=== PATIENT | female | born 1995 | race Caucasian/White ===

== ENCOUNTER 2020-07-19 20:41 | Emergency (ER) | payer BC, OTHER ==
[~2020-07-19] VITALS: Ht 172.7 cm; Wt 68.0 kg
[2020-07-19] MEDS ORDERED: ONDANSETRON 4 MG/2 ML (SDV) Z0FRAN ONE (21:21)
[2020-07-19 21:25] LABS: BASOPHILS % (AUTO) 0 % (0-10); EOSINOPHILS # (AUTO) 0.2 10^3/uL (0.0-0.3); EOSINOPHILS % (AUTO) 2 % (0-10); HEMATOCRIT 39 % (35-52); HEMOGLOBIN 12.7 g/dL (11.5-16.0); LYMPHOCYTES # (AUTO) 2.9 10^3/uL (1.0-4.0); LYMPHOCYTES % (AUTO) 34 % (12-44); MEAN CORPUSCULAR HEMOGLOBIN 29 pg (25-34); MEAN CORPUSCULAR HGB CONC 33 g/dL (32-36); MEAN CORPUSCULAR VOLUME 88 fL (80-99); MONOCYTES # (AUTO) 0.7 10^3/uL (0.0-1.0); MONOCYTES % (AUTO) 9 % (0-12); NEUTROPHILS # (AUTO) 4.6 10^3/uL (1.8-7.8); NEUTROPHILS % (AUTO) 54 % (42-75); PLATELET COUNT 318 10^3/uL (130-400); WHITE BLOOD COUNT 8.6 10^3/uL (4.3-11.0)
[2020-07-19 21:37] LABS: ALANINE AMINOTRANSFERASE 17 U/L (0-55); ALKALINE PHOSPHATASE 66 U/L (40-136); BILIRUBIN,TOTAL 0.3 MG/DL (0.1-1.0); BUN/CREATININE RATIO 15; CALCIUM 7.9 MG/DL (8.5-10.1); CARBON DIOXIDE 22 MMOL/L (21-32); CHLORIDE 104 MMOL/L (98-107); CREATININE SERUM 0.66 MG/DL (0.60-1.30); GFR ESTIMATED > 60; GLUCOSE 116 MG/DL (70-105); POTASSIUM 3.5 MMOL/L (3.6-5.0); SODIUM 135 MMOL/L (135-145); TOTAL PROTEIN 6.5 GM/DL (6.4-8.2)
--- NOTE | 2020-07-19 22:04 | Diagnostic Imaging Report ---
PROCEDURE: CT head without contrast. TECHNIQUE: Multiple contiguous axial images were obtained through the brain without the use of intravenous contrast. Auto Exposure Controls were utilized during the CT exam to meet ALARA standards for radiation dose reduction. INDICATION: Near syncope COMPARISON: There are no prior studies available for comparison. There is no mass, shift of the midline or hemorrhage to suggest an acute intracranial abnormality. The ventricles are not abnormally dilated. The bone windows show no evidence for a fracture or for a destructive lesion. The orbits are symmetrical and within normal limits. The sinuses are generally clear. IMPRESSION: 1. There is no evidence for an acute intracranial abnormality. 2. If clinical concern regarding an underlying abnormality persists, an MRI would be recommended for further study. Dictated by: Dictated on workstation # [id number]
--- NOTE | 2020-07-19 23:04 | ED General ---
General Chief Complaint: Neurological Problems Stated Complaint: [facility] Nursing Triage Note: PATIENT ARRIVES TONIGHT VIA POV FROM LOCAL RESTAURANT AFTER HAVING WHAT IS DESCRIBED A POTENTIAL SEIZURE. PATIENT WAS EATING AND VISITING WITH FRIENDS WHEN ALL OF THE SUDDEN SHE FELL FORWARD EITH HER HEAD ALMOST HITTING THE TABLE. PATIENT IS UNABLE TO RECALL WHETHER SHE LOST CONCIOUSNESS BUT A FRIEND STATES SHE WAS RESPONDING WHEN ASKED IF SHE WAS OKAY, ALSO STATES HER LIPS WERE WHITE. PATIENT STATES AFTER SITTING BACK UP SHE BECAME NAUSEOUS AND WEAK. BILATERAL SIDE RAILS UP, CALL LIGHT IN REACH, S.O. AT BEDSIDE. Nursing Sepsis Screen: No Definite Risk Source of Information: Patient Exam Limitations: No Limitations History of Present Illness Date Seen by Provider: July 19, 2020 Time Seen by Provider: 20:45 Initial Comments Patient is a 24-year-old female who presents to the emergency department today after a near syncopal event. Patient was sitting down and eating and with friends when she felt very hot sweaty, lightheaded and palpitations. Patient states that she felt her head jerking forward and thought that she was about to pass out. Patient states that she felt very weak. She became very pale according to bystanders. She remained pale on presentation to the emergency room and nauseated. Patient describes an episode about 2 weeks ago when she had similar symptoms while driving. She had to rib puller and felt like she was about to pass out with similar nausea, lightheadedness and palpitations. Patient denies any past medical history she takes no yore-bdf-wemjzka medications or prescription medications. She just completed her menstrual cycle and states that she is not . No drug use, alcohol use. No recent illnesses. No fevers, chills, cough congestion abdominal pain vomiting or diarrhea. No urinary complaints or abnormal vaginal discharge. At the time of my initial evaluation although pale the patient states that she is starting to feel better. Of note while her nurse was starting her IV and getting labs drawn the patient was noted to become a little bit nauseated and lightheaded and steward/stewardess room showed her heart rate tach up to the 160s. This spontaneously resolved pretty quickly and the patient started feeling better again. All other review of systems reviewed and negative except as stated above. Timing/Duration: 1 Hour Severity: Severe Modifying Factors: improves with Eating, improves with Rest Associated Systoms: Diaphoresis, Malaise, Nausea/Vomiting, Weakness Allergies and Home Medications Patient Home Medication List Home Medication List Reviewed: Yes Review of Systems Review of Systems Constitutional: see HPI, diaphoresis EENTM: no symptoms reported Respiratory: no symptoms reported Cardiovascular: palpitations Gastrointestinal: nausea Genitourinary: no symptoms reported : No Musculoskeletal: no symptoms reported Skin: other (Diaphoretic) Psychiatric/Neurological: No Symptoms Reported All Other Systems Reviewed Negative Unless Noted: Yes Past Mqxbrbb-Gqjhay-Fqotrk Hx Patient Social History Alcohol Use: Occasionally Uses Recent Infectious Disease Expo: No Recent Hopitalizations: No Past Medical History Surgeries: No Respiratory: No Cardiac: No Neurological: No Last Menstrual Period: July 12, 2020 Genitourinary: No Gastrointestinal: No Musculoskeletal: No Endocrine: No HEENT: No Cancer: No Psychosocial: No Integumentary: No Blood Disorders: No Physical Exam Vital Signs Vital Signs - First Documented 07/19/20 20:50 Temp 35.7 Pulse 84 Resp 18 B/P (MAP) 118/106 (110) Capillary Refill : Less Than 3 Seconds Height, Weight, BMI Height: '" Weight: lbs. oz. kg; 22.00 BMI Method: General Appearance: No Apparent Distress, WD/WN Eyes: Bilateral Eye Normal Inspection, Bilateral Eye PERRL, Bilateral Eye EOMI HEENT: PERRL/EOMI Neck: Normal Inspection, Non Tender, Supple Respiratory: Lungs Clear, Normal Breath Sounds, No Accessory Muscle Use, No Respiratory Distress Cardiovascular: Regular Rate, Rhythm Gastrointestinal: Non Tender, Soft Extremity: Normal Inspection, Normal Range of Motion, Non Tender, No Calf Tenderness Neurologic/Psychiatric: Alert, Oriented x3, No Motor/Sensory Deficits, Normal Mood/Affect, outreach librarian II-XII Norm as Tested Skin: Diaphoresis, Pallor Progress/Results/Core Measures Suspected Sepsis Recent Fever Within 48 Hours: No Infection Criteria Present: None New/Unexplained Altered Menta: No Sepsis Screen: No Definite Risk SIRS Temperature: Pulse: 84 Respiratory Rate: 18 Laboratory Tests 07/19/20 21:00: White Blood Count 8.6 Blood Pressure 118 /106 Mean: 110 Laboratory Tests 07/19/20 21:00: Creatinine 0.66, Platelet Count 318, Total Bilirubin 0.3 Results/Orders Lab Results Laboratory Tests Test 07/19/20 21:00 07/19/20 22:28 Range/Units White Blood Count 8.6 4.3-11.0 10^3/uL Red Blood Count 4.37 3.80-5.11 10^6/uL Hemoglobin 12.7 11.5-16.0 g/dL Hematocrit 39 35-52 % Mean Corpuscular Volume 88 80-99 fL Mean Corpuscular Hemoglobin 29 25-34 pg Mean Corpuscular Hemoglobin Concent 33 32-36 g/dL Red Cell Distribution Width 11.8 10.0-14.5 % Platelet Count 318 130-400 10^3/uL Mean Platelet Volume 11.0 9.0-12.2 fL Immature Granulocyte % (Auto) 0 % Neutrophils (%) (Auto) 54 42-75 % Lymphocytes (%) (Auto) 34 12-44 % Monocytes (%) (Auto) 9 0-12 % Eosinophils (%) (Auto) 2 0-10 % Basophils (%) (Auto) 0 0-10 % Neutrophils # (Auto) 4.6 1.8-7.8 10^3/uL Lymphocytes # (Auto) 2.9 1.0-4.0 10^3/uL Monocytes # (Auto) 0.7 0.0-1.0 10^3/uL Eosinophils # (Auto) 0.2 0.0-0.3 10^3/uL Basophils # (Auto) 0.0 0.0-0.1 10^3/uL Immature Granulocyte # (Auto) 0.0 0.0-0.1 10^3/uL Sodium Level 135 135-145 MMOL/L Potassium Level 3.5 L 3.6-5.0 MMOL/L Chloride Level 104 98-107 MMOL/L Carbon Dioxide Level 22 21-32 MMOL/L Anion Gap 9 5-14 MMOL/L Blood Urea Nitrogen 10 7-18 MG/DL Creatinine 0.66 0.60-1.30 MG/DL Estimat Glomerular Filtration Rate > 60 BUN/Creatinine Ratio 15 Glucose Level 116 H 70-105 MG/DL Calcium Level 7.9 L 8.5-10.1 MG/DL Corrected Calcium 7.9 L 8.5-10.1 MG/DL Total Bilirubin 0.3 0.1-1.0 MG/DL Aspartate Amino Transf (AST/SGOT) 20 5-34 U/L Alanine Aminotransferase (ALT/SGPT) 17 0-55 U/L Alkaline Phosphatase 66 40-136 U/L Total Protein 6.5 6.4-8.2 GM/DL Albumin 4.0 3.2-4.5 GM/DL Urine Test NEGATIVE NEGATIVE My Orders Orders - HARPER CHRISTIANSON MD Ed Iv/Invasive Line Start (07/19/20 21:19) Cbc With Automated Diff (07/19/20 21:19) Comprehensive Metabolic Panel (07/19/20 21:19) Hcg,Qualitative Urine (07/19/20 21:19) Ekg Tracing (07/19/20 21:19) Ct Head Wo (07/19/20 21:19) Ondansetron Injection (Zofran Injectio (07/19/20 21:21) Medications Given in ED Current Medications Medications Dose Ordered Sig/Gallo Route Start Time Stop Time Status Last Admin Dose Admin Ondansetron HCl 4 mg STK-MED ONCE .ROUTE 07/19/20 21:21 07/19/20 21:29 DC 07/19/20 21:32 4 MG Vital Signs/I&O 07/19/20 20:50 Temp 35.7 Pulse 84 Resp 18 B/P (MAP) 118/106 (110) Capillary Refill : Less Than 3 Seconds Blood Pressure Mean: 110 Progress Note : Time: 23:02 Progress Note Long discussion with the patient regarding her work-up here in the emergency department. No clinical or objective findings found to warrant further investigation or admission. I suspect that the patient may be having runs of SVT which are inducing her symptoms. She looks well on discharge, good color, not diaphoretic and no longer nauseated. Laboratory studies have been reviewed and are unremarkable. Head CT is normal. Patient does not have a headache currently. No palpitations currently. Heart rate is in the 60s to 70s. Blood pressure is good. I have given the patient an outpatient order for Holter monitor. We will follow her up with Dr. Dyer. She is given good return precautions which include to come back to the emergency room for return or worsening of symptoms. She is comfortable with this plan of care. All questions have been sought and answered. Patient is stable for discharge. Departure Impression Primary Impression: Near syncope Disposition: 01 HOME, SELF-CARE Condition: Stable Departure-Patient Inst. Decision time for Depature: 23:03 Referrals: DENISE DYER MD FACP FACC [facility] Patient Instructions: LOCAL PHYSICIAN LIST, Near Fainting Add. Discharge Instructions: Drink plenty of fluids to stay well-hydrated. Follow-up with a Holter monitor, you have been given an outpatient order form to have this placed. Please call Dr. Dyer's office for a follow-up appointment after having the Holter monitor placed. Come back to the emergency room for any return of symptoms, worsening concerns or new emergent complaints. All discharge instructions reviewed with patient and/or family. Voiced understanding. HARPER CHRISTIANSON MD July 19, 2020 23:04
[2020-07-19 23:08] VITALS: BP 109/69
== END 2020-07-19 23:13 | disposition home or self-care (01) ==
LOC: ER 20:43
DX: R55 Syncope and collapse (principal)
CPT/HCPCS: 36415; 70450; 80053; 84703; 85025; 93005

== ENCOUNTER 2020-07-21 14:00 | Outpatient (RCR) | payer BC | END 2020-10-19 | disposition home or self-care (01) | LOC: CARD 14:00 | PROVIDERS: ATTEND Registered Nurse | DX: R00.2 Palpitations (principal); R55 Syncope and collapse | CPT/HCPCS: 93225; 93226 ==

== ENCOUNTER → 2021-03-06 | Outpatient (CLI) | payer BC ==
--- NOTE | 2021-03-06 11:28 | Diagnostic Imaging Report ---
INDICATION: Positive test. FINDINGS: There is a single live IUP measuring 6 weeks 1 day gestational age. The heart rate was recorded at 118 BPM. No bernardino-gestational sac hemorrhage is detected. The adnexa are unremarkable. No adnexal mass or free fluid is seen. The ovaries are unremarkable. IMPRESSION: Single live IUP of 6 weeks 1 day gestational age. The estimated date of confinement sonographically is 10/29/2021. Dictated by: Dictated on workstation # [id number]
== END ==
LOC: RAD 10:00
PROVIDERS: ATTEND Obstetrics & Gynecology
DX: Z32.01 Encounter for pregnancy test, result positive (principal)
CPT/HCPCS: 76801; 76817

== ENCOUNTER → 2021-09-27 | Outpatient (CLI) | payer BC | LOC: LABNPT 08:45 | PROVIDERS: ATTEND Obstetrics & Gynecology | DX: O13.9 Gestational [pregnancy-induced] hypertension without significant proteinuria, unspecified trimester (principal); Z3A.00 Weeks of gestation of pregnancy not specified | CPT/HCPCS: 82570; 84156 ==

== ENCOUNTER → 2021-09-29 | Outpatient (CLI) | payer BC | LOC: LABNPT 09:10 | PROVIDERS: ATTEND Obstetrics & Gynecology | DX: Z01.89 Encounter for other specified special examinations (principal) | CPT/HCPCS: 82570; 84156 ==

== ENCOUNTER → 2021-10-02 | Outpatient (CLI) | payer BC | LOC: LABNPT 09:13 | PROVIDERS: ATTEND Obstetrics & Gynecology | DX: O13.9 Gestational [pregnancy-induced] hypertension without significant proteinuria, unspecified trimester (principal); Z3A.00 Weeks of gestation of pregnancy not specified | CPT/HCPCS: 82570; 84156 ==

== ENCOUNTER → 2021-10-06 | Outpatient (CLI) | payer BC | LOC: LABNPT 08:40 | PROVIDERS: ATTEND Obstetrics & Gynecology | DX: O13.9 Gestational [pregnancy-induced] hypertension without significant proteinuria, unspecified trimester (principal); Z3A.00 Weeks of gestation of pregnancy not specified | CPT/HCPCS: 82570; 84156 ==

== ENCOUNTER → 2021-10-10 | Outpatient (CLI) | payer BC ==
[~2021-10-10] MED LIST: FERR-84 PO; PREN1TAB19 PO
== END ==
LOC: LABNPT 10:17
PROVIDERS: ATTEND Obstetrics & Gynecology
DX: O13.9 Gestational [pregnancy-induced] hypertension without significant proteinuria, unspecified trimester (principal); Z3A.00 Weeks of gestation of pregnancy not specified
CPT/HCPCS: 82570; 84156

== ENCOUNTER 2021-10-13 12:39 | Inpatient (IN) | payer BC ==
[~2021-10-13] VITALS: Ht 172 cm; Wt 81.6 kg
[2021-10-13] VITALS (38 sets, daily range): BP systolic 120–156; BP diastolic 57–87
[2021-10-13] MEDS ORDERED: OXYTOCIN PRE-MIX DRIP 500 ML IV SCH ×3 (13:15→23:00)
[2021-10-13] MEDS ORDERED: D5 LR IV SOLUTION 1,000 ML IV ONE (13:33)
[2021-10-13] MEDS ORDERED: AMPICILLIN FOR IV USE 2,000 MG in WATER (STERILE) FOR INJECTION 14.8 ML IV ONE (13:45)
[2021-10-13] MEDS ORDERED: AMPICILLIN FOR IV USE 1,000 MG in WATER (STERILE) FOR INJECTION 7.4 ML IV SCH ×2 (13:45→17:45)
[2021-10-13] MEDS ORDERED: D5 LR IV SOLUTION 1,000 ML IV SCH (13:45)
--- NOTE | 2021-10-13 13:45 | History & Physical ---
History and Physical Date Seen by Provider: Oct 13, 2021 Time Seen by Provider: 13:41 This patient is a 26-year-old 1 female currently at 37-3/7 weeks gestation. Her is complicated by PIH. Urine protein creatinine ratios have been approaching 0.3 but have maintained under that level so far.She was seen today for follow-up after biophysical profile had demonstrated an RAMAN of 5.Recheck today showed an RAMAN of 3.Decision made to admit and deliver patient. Is not certain whether she may be leaking amniotic fluid as she described only being moist. Her GBS culture was positive. Patient denies contractions pain or pressure. Allergies are none Medications are vitamins Medical social and surgical history is are per the antepartum record HEENT exam is normal Neck is supple no lymphadenopathy no thyromegaly Abdomen is gravid soft nontender nondistended Extremities show no clubbing or cyanosis. There is no Homans' sign. Pelvic exam is pending monitor shows a category 1 heart rate tracing with occasional contractions and some uterine irritability Lab work is pending Assessment and plan 37-3/7 weeks gestation in a patient with PIH and severe oligohydramnios. Plan is for admission administration of ampicillin IV for GBS prophylaxis and induction of labor with amniotomy and Pitocin. We anticipate a vaginal delivery but would be prepared for a delivery if needed. Patient is aware that with PIH and although the likelihood of a is slightly higher 37-3/7 weeks gestation with PIH and oligohydramnios Allergies and Home Medications Allergies Coded Allergies: No Known Drug Allergies (Unverified , 10/13/21) Patient Home Medication List Home Medication List Reviewed: Yes ELSIE CAICEDO MD Oct 13, 2021 13:44
[2021-10-13] MEDS ORDERED: WATER (STERILE) FOR INJECTION 20 ML ONE (14:10)
[2021-10-13] MEDS ORDERED: AMPICILLIN 2,000 MG/14.8 ML (IV USE) ONE (14:10)
[2021-10-13 14:12] LABS: BASOPHILS % (AUTO) 1 % (0-10); EOSINOPHILS # (AUTO) 0.1 10^3/uL (0.0-0.3); EOSINOPHILS % (AUTO) 1 % (0-10); HEMATOCRIT 27 % (35-52); LYMPHOCYTES # (AUTO) 1.4 10^3/uL (1.0-4.0); LYMPHOCYTES % (AUTO) 16 % (12-44); MEAN CORPUSCULAR HEMOGLOBIN 28 pg (25-34); MEAN CORPUSCULAR HGB CONC 33 g/dL (32-36); MEAN CORPUSCULAR VOLUME 86 fL (80-99); MEAN PLATELET VOLUME 12.8 fL (9.0-12.2); MONOCYTES # (AUTO) 0.7 10^3/uL (0.0-1.0); MONOCYTES % (AUTO) 8 % (0-12); NEUTROPHILS # (AUTO) 6.5 10^3/uL (1.8-7.8); NEUTROPHILS % (AUTO) 75 % (42-75); PLATELET COUNT 179 10^3/uL (130-400); WHITE BLOOD COUNT 8.7 10^3/uL (4.3-11.0)
[2021-10-13] MEDS ORDERED: PREN1TAB19 PO (14:39)
[2021-10-13] MEDS ORDERED: FERR-84 PO (14:39)
[2021-10-13] MEDS ORDERED: fentaNYL 2 mcg/ml BUPIVA 0.125 100 ML ONE (15:40)
[2021-10-13] MEDS ORDERED: fentaNYL INJ 100 MCG/2 ML AMP ONE (16:20)
[2021-10-13] MEDS ORDERED: BUPIVACAINE 0.25% 30 ML (SENSORCAINE) VIAL ONE (16:20)
[2021-10-13] MEDS ORDERED: CATHETER FLUSH 10 ML SYR IV PRN (16:45)
[2021-10-13] MEDS ORDERED: LACTATED RINGERS 1,000 ML IV ONE (16:45)
[2021-10-13] MEDS ORDERED: NALOXONE 0.4 MG/ML 1 ML (NARCAN) VIAL IV PRN (16:45)
[2021-10-13] MEDS ORDERED: fentaNYL 2 mcg/ml BUPIVA 0.125 100 ML IV SCH (16:45)
[2021-10-13] MEDS ORDERED: LIDOCAINE/EPI 2% 1:200,00 (XYLOCAINE) 10 ML VIAL ONE ×2 (19:03→19:53)
--- NOTE | 2021-10-13 20:47 | Discharge Inst-Surgical ---
Discharge Inst-Surgical Depart Medication/Instructions New, Converted or Re-Newed RX: Transmitted to Pharmacy Consults/Follow Up Patient Instructions: As directed Orders & Referrals Follow Up Appt: Call to make follow up appt. for patient in 1 week For suture removal On October 19, 2021 at 9:30 AM. Activity: Rest for 24 hours, than as tolerated. Wound Care: May remove Band-Aid tomorrow. Replace as desired. Keep incisions clean and dry. Wash daily with soap and water. Prescriptions for Percocet Motrin and Colace have been sent to patient's pharmacy from my office Diet: As tolerated- shower or tub bathe as desired. No driving for 24 hours, no alcoholic beverages for 24 hours, and nothing per vagina (no tampons, douching, or intercourse) for 2 weeks. Patient to return to the clinic as soon as possible for: Temperature greater than 101F, Severe Pain, Foul discharge from incision or vagina, Excessive Bleeding (more than a period). Activity Activity as Tolerated: No Diet Discharge Diet: No Restrictions ELSIE CAICEDO MD Oct 13, 2021 20:47
--- NOTE | 2021-10-13 21:03 | Discharge Inst-Surgical ---
Discharge Inst-Surgical Depart Medication/Instructions New, Converted or Re-Newed RX: Transmitted to Pharmacy Consults/Follow Up Patient Instructions: As directed Orders & Referrals Follow Up Appt: Call to make follow up appt. for patient in 4 weeks. Activity Per routine post vaginal delivery instructions. Prescription for Percocet Motrin and Colace have been sent to patient's pharmacy from my office Diet as tolerated Patient may shower or tub bathe as desired. Activity Activity as Tolerated: No Diet Discharge Diet: No Restrictions ELSIE CAICEDO MD Oct 13, 2021 21:03
[2021-10-13] MEDS ORDERED: BENZOCAINE/MENTHOL (DERMOPLAST) 56 ML CAN TP ONE (22:50)
[2021-10-13] MEDS ORDERED: KETOROLAC 30 MG/ML VIAL ONE (22:50)
[2021-10-13] MEDS: KETOROLAC 30 MG/ML VIAL IV SCH (22:54)
[2021-10-13] MEDS ORDERED: ONDANSETRON 4 MG/2 ML (SDV) Z0FRAN IVP PRN (23:00)
[2021-10-13] MEDS ORDERED: TETANUS,DIPTH,PERTUSS P/F (BOOSTRIX) 0.5 ML VIAL IM ONE (23:00)
[2021-10-13] MEDS ORDERED: BENZOCAINE/MENTHOL (DERMOPLAST) 56 ML CAN TP PRN ×2 (23:00)
[2021-10-13] MEDS ORDERED: IBUPROFEN 800 MG (MOTRIN) TAB PO SCH (23:00)
[2021-10-13] MEDS ORDERED: oxyCODONE/APAP 5/325MG (PERCOCET 5) TABLET PO PRN (23:00)
[2021-10-14] MEDS ORDERED: LIDOCAINE/EPI 2% 1:200,00 (XYLOCAINE) 10 ML VIAL INJ PRN (03:00)
--- NOTE | 2021-10-14 03:31 | OPERATIVE REPORT ---
DATE OF SERVICE: 10/13/2021 DELIVERY NOTE The patient delivered by term spontaneous vaginal delivery a viable female infant with Apgars of 8 and 9 at 1 and 5 minutes respectively, weight of 7 pounds 5 ounces. Cord blood pH is pending and a time of 19:58. The was bulb suctioned on delivery of the head and again on completion of delivery. Umbilical cord was doubly clamped, the father cut the cord, the baby was passed to mom's abdomen. Cord bloods were obtained. The placenta delivered fairly promptly spontaneously Garcia. It was normal with 3-vessel cord. The cervix, vagina, rectum, and perineum were examined except for a midline episiotomy that was performed with the heart rate dropped to the 90s and mom unable to expel the baby. The episiotomy shorten the second stage of labor appropriately. The episiotomy was repaired with a single suture of 3-0 Rapide in the usual manner to good hemostasis and good reapproximation. Sponge and needle counts were correct on completion of delivery and the repair. Blood loss was around 200 mL. The patient tolerated the delivery well and remained in the LDR with the baby. Job ID: [id number] DocumentID: [id number] Dictated Date: 10/13/2021 20:18:39 Grainer Machine Date: 10/14/2021 03:30:48 Dictated By: ELSIE CAICEDO MD
[2021-10-14 04:41] VITALS: BP 123/71
[2021-10-14] MEDS: KETOROLAC 30 MG/ML VIAL IV SCH (04:55)
--- NOTE | 2021-10-14 07:18 | Progress Note ---
Standard Progress Note Progress Notes/Assess & Plan Date Seen by a Provider: Oct 14, 2021 Time Seen by a Provider: 07:17 Progress/Assessment & Plan This patient without complaint. She is ambulating, voiding, tolerating oral intake well and has good pain control. She denies headache, denies shortness of breath, denies nausea or vomiting. Vital Signs Date Time Temp Pulse Resp B/P (MAP) Pulse Ox O2 Delivery O2 Flow Rate FiO2 10/14/21 04:41 36.4 81 18 123/71 (88) 98 Room Air 10/13/21 22:53 66 18 137/78 (97) Room Air 10/13/21 22:38 64 18 129/57 (81) Room Air 10/13/21 22:23 73 18 121/59 (79) Room Air 10/13/21 22:07 76 18 131/64 (86) Room Air 10/13/21 21:53 83 18 125/67 (86) Room Air 10/13/21 21:38 81 18 132/64 (86) Room Air 10/13/21 21:23 74 18 133/62 (85) Room Air 10/13/21 21:08 72 18 131/61 (84) Room Air 10/13/21 20:53 77 18 144/64 (90) Room Air 10/13/21 20:38 77 18 133/69 (90) Room Air 10/13/21 20:23 78 18 140/69 (92) Room Air 10/13/21 20:08 100 18 140/59 (86) Room Air 10/13/21 19:58 69 18 141/65 (90) Room Air 10/13/21 19:45 73 18 132/74 (93) Room Air 10/13/21 19:30 71 18 156/87 (110) Room Air 10/13/21 19:15 36.2 70 Room Air 10/13/21 19:00 70 153/82 (105) Room Air 10/13/21 18:45 70 141/76 (97) Room Air 10/13/21 18:30 69 123/72 (89) 100 Room Air 10/13/21 18:15 69 123/72 (89) Room Air 10/13/21 18:00 65 16 133/76 (95) 100 Room Air 10/13/21 17:45 36.3 74 16 130/75 (93) Room Air 10/13/21 17:30 68 16 124/66 (85) 100 Room Air 10/13/21 17:15 69 16 120/58 (78) Room Air 10/13/21 17:00 69 16 120/58 (78) Room Air 10/13/21 16:45 71 16 128/64 (85) Room Air 10/13/21 16:30 73 146/72 (96) Room Air 10/13/21 16:15 36.8 73 18 134/72 (92) Room Air 10/13/21 16:00 75 18 142/82 (102) Room Air 10/13/21 15:45 69 137/71 (93) Room Air 10/13/21 15:30 62 130/78 (95) Room Air 10/13/21 15:15 74 135/67 (89) Room Air 10/13/21 15:00 75 18 139/67 (91) Room Air 10/13/21 14:45 81 18 127/82 (97) Room Air 10/13/21 14:30 71 136/72 (93) Room Air 10/13/21 14:15 37.6 71 145/75 (98) Room Air 10/13/21 14:00 74 125/78 (94) Room Air 10/13/21 13:45 80 18 129/80 (96) Room Air 10/13/21 12:45 37.4 75 18 97 Room Air 10/13/21 12:45 37.4 75 18 128/72 (90) 97 Room Air I & O 10/14/21 07:00 Intake Total 1022.4 ml Balance 1022.4 ml Vital signs are stable. Patient is afebrile The abdomen is benign fundus is firm below the umbilicus and nontender Extremities show no clubbing or cyanosis. There is no Homans' sign. Assessment and plan day #1 status post term spontaneous vaginal livery doing well. Blood pressures are normalizing. Plan is for routine convalescent care today and consider for discharge home tomorrow Final Diagnosis 37-week spontaneous vaginal delivery ELSIE CAICEDO MD Oct 14, 2021 07:18
--- NOTE | 2021-10-14 08:28 | Anesthesia-Regional Post-Op ---
Regional Patient Condition Mental Status: Alert, Oriented x3 Circulation: Same as Pre-Op Headache: Absent Sensation: Full Recovery Motor Block: Absent Post Op Complications Complications None Follow Up Care/Instructions Patient Instructions None needed. Anesthesia/Patient Condition Patient is doing well, no complaints, stable vital signs, no apparent adverse anesthesia problems. No complications reported per nursing. D/C home per [facility] Criteria: Yes OSMEL SCHUMACHER CRNA Oct 14, 2021 08:28
[2021-10-14] MEDS ORDERED: IBUPROFEN 800 MG (MOTRIN) TAB PO ONE (10:33)
[2021-10-14 10:36] VITALS: BP 128/86
[2021-10-14] MEDS: IBUPROFEN 800 MG (MOTRIN) TAB PO SCH ×2 (10:36→17:51)
[2021-10-14 14:00] VITALS: BP 130/85
--- NOTE | 2021-10-14 15:32 | History & Physical ---
History and Physical Date Seen by Provider: Oct 14, 2021 Time Seen by Provider: 15:29 This patient is a 26-year-old 4 para [address] Diana for whom I am on-call. Patient presents with complaint of spontaneous rupture membranes about 1 to 1-1/2 hours before presentation. She reports a large gush of clear fluid. On presentation her cervix was 6 cm dilated. She reports 4 cm dilated when she was last checked last week. Her has been uncomplicated. Her GBS culture was negative. She reports that she delivered quite rapidly with her last baby and she is feeling pressure. She is requesting an epidural Allergies are none Medications are vitamins Medical social and surgical history is are per the antepartum record of Dr. Diana HEENT exam is normal Neck is supple no lymphadenopathy no thyromegaly Abdomen is gravid soft nontender nondistended Extremities show no clubbing or cyanosis. No Homans' sign. Pelvic exam per the admitting nurse shows a cervix now 7 cm dilated with a vertex presentation with likely compound presentation with fingers palpable with the head.Bedside ultrasound demonstrates a Vertex presentation monitor shows contractions every 3 to 4 minutes and a category 1 heart rate pattern Assessment and plan 39-week multigravid patient with spontaneous rupture membranes and history of rapid labor and advanced dilation. We will allow an epidural/intrathecalAnd we anticipate a vaginal delivery fairly shortly 39 weeks with spontaneous rupture membranes and spontaneous labor Allergies and Home Medications Allergies Coded Allergies: No Known Drug Allergies (Unverified , 10/13/21) Patient Home Medication List Home Medication List Reviewed: Yes Ferrous Sulfate (Iron) 325 Mg (65 Mg Iron) Tablet, 325 MG PO DAILY, (Reported) Entered as Reported by: EFREM TORO on 10/13/211438 Last Action: New Order Vit/Iron Fumarate/FA ( Vitamins Tablet) 28 Mg Iron-800 Mcg Tablet, 1 EACH PO DAILY, (Reported) Entered as Reported by: EFREM TORO on 10/13/21 143 Last Action: New Order ELSIE CAICEDO MD Oct 14, 2021 15:32
[2021-10-14 17:53] VITALS: BP 139/88
[2021-10-14 19:27] VITALS: BP 138/79
[2021-10-14 21:25] VITALS: BP 138/79
[2021-10-14] MEDS ORDERED: IBUPROFEN 800 MG (MOTRIN) TAB PO SCH (23:00)
== END 2021-10-14 22:05 | disposition home or self-care (01) | DRG 806 ==
LOC: LDRP 12:39
PROVIDERS: ADMIT Obstetrics & Gynecology; ATTEND Obstetrics & Gynecology
PROC: 10E0XZZ Delivery of Products of Conception, External Approach (ICD-10-PCS; principal; 2021-10-13)
PROC: 0W8NXZZ Division of Female Perineum, External Approach (ICD-10-PCS; 2021-10-13)
DX: O13.4 Gestational [pregnancy-induced] hypertension without significant proteinuria, complicating childbirth (principal); O41.03X0 Oligohydramnios, third trimester, not applicable or unspecified; Z37.0 Single live birth; Z3A.37 37 weeks gestation of pregnancy; O99.824 Streptococcus B carrier state complicating childbirth
CPT/HCPCS: 36415; 85025; 86850; 86900; 86901